=== PATIENT | male | born 1970 | race Caucasian/White ===

== ENCOUNTER 2020-04-23 12:37 | Emergency (ER) | payer OTHER ==
[~2020-04-23] VITALS: Ht 182.9 cm; Wt 81.7 kg
[2020-04-23 13:20] LABS: URINE BILIRUBIN NEGATIVE (Negative); URINE BLOOD NEGATIVE (Negative); URINE CLARITY CLEAR; URINE COLOR YELLOW; URINE GLUCOSE-RANDOM* NEGATIVE (Negative); URINE KETONES NEGATIVE (Negative); URINE LEUKOCYTES-REFLEX NEGATIVE (Negative); URINE NITRITE-REFLEX NEGATIVE (Negative); URINE PROTEIN (DIPSTICK) NEGATIVE (Negative); URINE SPECIFIC GRAVITY <= 1.005 (1.005-1.035); URINE UROBILINOGEN 0.2 E.U./dl (0.2-1.0)
[2020-04-23 13:32] LABS: ABSOLUTE NEUTROPHILS 2.9 thou/uL (1.4-8.2); BASOPHILS 0.8 % (0.0-2.0); EOSINOPHILS 2.7 % (0.0-3.0); HEMATOCRIT 33.4 % (42.0-52.0); HEMOGLOBIN 11.2 gm/dL (14.0-18.0); LYMPHOCYTES 26.1 % (24.0-44.0); MCH 25.7 pg (26.0-34.0); MCHC 33.6 g/dL (28.0-37.0); MCV 76.4 fL (80.0-100.0); MONOCYTES 12.8 % (1.0-8.0); PLATELET COUNT 238 thou/uL (150-400); POLYS 57.6 % (36.0-66.0); RBC 4.37 mil/uL (4.50-6.00); RDW 14.6 % (10.5-14.5)
[2020-04-23 13:35] LABS: ANION GAP 6 mmol/L (7-16); BUN 9 mg/dL (7-18); CALCIUM 8.6 mg/dL (8.5-10.1); CHLORIDE 95 mmol/L (98-107); CO2 29 mmol/L (21-32); CREATININE 0.8 mg/dL (0.7-1.3); GLUCOSE 104 mg/dL (74-106); SODIUM 130 mmol/L (136-145)
[2020-04-23 13:45] LABS: ALBUMIN 3.6 g/dL (3.4-5.0); AMYLASE 36 U/L (25-115); LIPASE 72 U/L (73-393); SGOT 25 U/L (15-37); SGPT 24 U/L (16-63); TOTAL BILIRUBIN 0.3 mg/dL (0.2-1.0); TOTAL PROTEIN 7.5 g/dL (6.4-8.2); TROPONIN-I <0.06 ng/mL (<0.06)
[2020-04-23] MEDS ORDERED: DULCOLAX STOOL100 M1 PO (14:54)
[2020-04-23 15:16] VITALS: BP 100/62
== END 2020-04-23 15:17 | disposition home or self-care (01) ==
LOC: ER 12:37
PROVIDERS: Emergency Medicine
DX: K46.9 Unspecified abdominal hernia without obstruction or gangrene (principal); K59.00 Constipation, unspecified; Z88.2 Allergy status to sulfonamides; Z88.6 Allergy status to analgesic agent; Z88.8 Allergy status to other drugs, medicaments and biological substances